=== PATIENT | female | born 1930 | race Caucasian/White ===

== ENCOUNTER 2016-11-01 07:24 | Emergency (ER) | payer MEDICARE ==
[~2016-11-01] VITALS: Ht 162.6 cm; Wt 59.0 kg
[2016-11-01] MEDS ORDERED: SODIUM CHLORIDE 0.9% 1,000 ML IV ONE (07:43)
[2016-11-01] MEDS ORDERED: LEVO100T5 PO (07:44)
[2016-11-01] MEDS ORDERED: LOSA50TA6 PO (07:44)
[2016-11-01] MEDS ORDERED: MECL-76 PO (07:44)
[2016-11-01] MEDS ORDERED: SODIUM CHLORIDE FLUSH 10ML SYR IVF ONE (08:00)
[2016-11-01] MEDS ORDERED: DIAZEPAM 5 MG/ML, 2ML IVPush ONE ×2 (08:00→09:00)
[2016-11-01 08:30] LABS: BLOOD UREA NITROGEN 21 mg/dL (7-18)
[2016-11-01 11:28] VITALS: BP 146/78
== END 2016-11-01 11:31 | disposition home or self-care (01) ==
LOC: ED 11:10
DX: R42 Dizziness and giddiness (principal); I10 Essential (primary) hypertension; E03.9 Hypothyroidism, unspecified; Z87.891 Personal history of nicotine dependence
CPT/HCPCS: 36415; 80048; 82040; 85025; 93005; 96361; 96374; 99285; J3360; J7030

== ENCOUNTER → 2017-01-11 | Outpatient (CLI) | payer MEDICARE ==
[~2017-01-11] MED LIST: LEVO100T5 PO; LOSA50TA6 PO; MECL-76 PO
== END | disposition home or self-care (01) ==
LOC: CFH 10:51
PROVIDERS: ATTEND Nurse Practitioner Primary Care
DX: E03.9 Hypothyroidism, unspecified (principal); E78.2 Mixed hyperlipidemia; I10 Essential (primary) hypertension; F06.31 Mood disorder due to known physiological condition with depressive features
CPT/HCPCS: 76536

== ENCOUNTER → 2017-02-22 | Outpatient (CLI) | payer MEDICARE | END | disposition home or self-care (01) | LOC: CFH 10:32 | PROVIDERS: ATTEND Nurse Practitioner Primary Care | DX: Z12.31 Encounter for screening mammogram for malignant neoplasm of breast (principal); M85.88 Other specified disorders of bone density and structure, other site; E03.9 Hypothyroidism, unspecified; E78.2 Mixed hyperlipidemia; I27.9 Pulmonary heart disease, unspecified; I10 Essential (primary) hypertension; F06.31 Mood disorder due to known physiological condition with depressive features; Z79.899 Other long term (current) drug therapy | CPT/HCPCS: 77080; G0202 ==